=== PATIENT | female | born 1940 | race Caucasian/White ===

== ENCOUNTER 2024-11-20 01:27 | Observation (INO) | payer MEDICARE, SELFPAY ==
[2024-11-19 21:14] VITALS: BP 108/75
[2024-11-19 21:39] LABS: Urine Albumin 3+ (Neg - Trace); Urine Bilirubin Negative (Negative); Urine Character Clear (Clear); Urine Color Yellow; Urine Glucose Negative (Negative); Urine Ketone Negative (Negative); Urine Leukocyte 3+ (Negative); Urine Nitrite Positive (Negative); Urine Occult Blood 4+ (Negative); Urine Urobilinogen Negative (Neg - 1+)
[2024-11-19 21:48] LABS: Urine Squamous Cell 0-2 /LPF (Few)
[2024-11-19 21:50] LABS: Urine Bacteria Many (Negative); Urine White Cell >100 /HPF (0-5)
[2024-11-19 23:05] LABS: % Basophils 0.3 % (0-2); % Eosinophils 0.1 % (0-6); % Immature Granulocytes 0.3 % (0-0.5); % Lymphocytes 6.4 % (20.5-51.1); % Monocytes 6.4 % (1.7-9.3); % Neutrophils 86.5 % (42.2-75.2); Absolute Lymphocytes 0.7 10^3/uL (1.2-3.4); Absolute Monocytes 0.7 10^3/uL (0.1-0.6); Absolute Neutrophils 9.5 10^3/uL (1.4-6.5); Hemoglobin 12.7 g/dL (12.0-16.0); Mean Corp Hgb Conc. 33.4 g/dL (33.0-37.0); Mean Corpuscular Hgb 30.6 pg (27.0-31.0); Mean Corpuscular Volume 91.6 fL (81.0-99.0); Mean Platelet Volume 9.3 fL (7.4-10.4); Nucleated Red Blood Cells % 0 %; Platelet Count 326 10^3/uL (130-400); Red Blood Cell Count 4.15 10^6/uL (4.20-5.40); Red Cell Dist. Width 13.1 % (11.5-14.5)
--- NOTE | 2024-11-19 23:18 | ED.GENMED ---
History of Present Illness
General
Chief Complaint: Urinary Symptoms
Time Seen by Provider: 11/19/24 22:39
History of Present Illness
History of Present Illness:
Patient is a 84-year-old woman presenting to the emergency department with urinary symptoms and weakness. Patient states that today she slid off the toilet secondary to weakness. She did not fall or hit her head or lose consciousness. She notes
that she is been having urinary frequency and episodes of incontinence. She has had a UTI before. No fevers or chills. Family at bedside notes that she did have a change in her mentation 2 weeks ago but attributed that to using oxycodone as well
as Tylenol PM. She stopped using that and since then has not had any change in her mental status. Currently she is at her baseline.
Past History
Past History
ED Past Medical History: Other (chronic back pain with stimulator, LE neuropathy)
Social History
Personal:
Living: alone (children near by)
Phy Exam
Physical Exam
Physical Exam:
GENERAL: in no acute distress
HEENT: normocephalic, extraocular movements intact, moist oral mucosa
NECK: normal inspection
RESPIRATORY: no respiratory distress, clear to auscultation bilaterally
CARDIOVASCULAR: regular rate and rhythm
ABDOMEN/: soft, non-distended, non-tender to palpation, no rebound or guarding
EXTREMITIES: non-tender, no edema/swelling
NEUROLOGIC: awake and alert oriented x 3, moves all extremities
SKIN: warm
Sepsis
Sepsis Screening
Sepsis Assessment: Sepsis Ruled Out
Sepsis Screen
Sepsis Screen: Sepsis Ruled Out
Date: 11/19/24
Time: 23:59
Course
Orders/Labs/Results
Orders:
Orders
11/19/24 21:30
Urinalysis Reflex To Culture Urgent
Date Specimen was Collected: 11/19/24
Time Specimen was Collected: 21:18
Urine Microscopic Reflex Cult Urgent
Urine Culture Urgent
NEHA Source: U
Specimen Description:
Date Specimen was Collected: 11/19/24
Time Specimen was Collected: 21:18
11/19/24 22:53
Complete Blood Count/With Diff Urgent
Comprehensive Metabolic Panel Urgent
11/19/24 23:56
Ciprofloxacin 400 mg/[id number] [Cipro 400 mg] 200 ml IV NOW
11/19/24 23:58
Acetaminophen [Tylenol] 1,000 mg PO NOW STA
Abnormal Lab Results
11/19/24 11/19/24
21:30 22:53
WBC 11.0 H 10^3/uL
(4.8-10.8)
RBC 4.15 L 10^6/uL
(4.20-5.40)
Absolute Neuts (auto) 9.5 H 10^3/uL
(1.4-6.5)
Absolute Lymphs (auto) 0.7 L 10^3/uL
(1.2-3.4)
Absolute Monos (auto) 0.7 H 10^3/uL
(0.1-0.6)
Neutrophils % 86.5 H %
(42.2-75.2)
Lymphocytes % 6.4 L %
(20.5-51.1)
Glucose 112 H mg/dl
(70-99)
Ur Occult Blood Reflex 4+ A
(Negative)
Urine Nitrite (Reflex) Positive A
(Negative)
Leukocyte Esterase Rfl 3+ A
(Negative)
Urine WBC (Reflex) >100 A /HPF
(0-5)
Urine Bacteria (Reflex) Many A
(Negative)
Urine Albumin (Reflex) 3+ A
(Neg - Trace)
11/19/24 22:53
11/19/24 22:53
Vital Signs
Initial and Last Documented VS:
Initial Vital Signs
Temp Pulse Resp BP Pulse Ox
98.3 F 88 16 108/75 99
11/19/24 21:14 11/19/24 21:14 11/19/24 21:14 11/19/24 21:14 11/19/24 21:14
Last Documented Vital Signs
Temp Pulse Resp BP Pulse Ox
98.3 F 88 16 108/75 99
11/19/24 21:14 11/19/24 21:14 11/19/24 21:14 11/19/24 21:14 11/19/24 21:14
MDM/Problems Addressed
Differential Diagnosis Includes:
Patient is a 83-year-old woman presenting to the emergency department with generalized weakness that resulted her and sliding off the toilet with the urinary symptoms. Vitals are notable for being afebrile. Exam is otherwise reassuring. She does
not have any obvious traumatic injuries. Concern for UTI versus metabolic derangement. Urine does show an obvious infection. Will check blood work. Given the degree of weakness that resulted in a fall and the fact the patient lives at home by
herself patient will need admission for antibiotics/PT eval prior to discharge.
*Critical Care Note
Total Time (30-74mins, 75-104mins- exclusive of procedures): Not Applicable
Update Note
Update Note:
Blood work does show white count of 11. Patient remained afebrile. Will give antibiotics and admit. Discussed with hospitalist who excepted patient to their service
ED Attending Note
-
Portions of this chart may have been created with voice recognition software.� Occasional wrong word or��sound alike� substitutions may have occurred due to the inherent limitations of voice recognition software.
Discharge Plan
Departure
Patient Disposition: Admit
Date of Disposition: 11/19/24
Time of Disposition: 23:58
Presentation/result/management discussed w/ accepting MD/DO: Hospitalist
Discharge Problem:
Acute UTI
Prescriptions:
No Action
bupropion HCl 150 mg Tablet Sustained-Release 12 Hr
150 mg PO BID
ibuprofen [Advil] 200 mg Tablet
600 mg PO Q6H PRN (Reason: pain)
magnesium 250 mg Tablet
250 mg PO DAILY
alpha lipoic acid [Lipoic Acid] 100 mg Capsule
100 mg PO DAILY
Referrals:
UNKNOWN - PT DOES,NOT KNOW [Family Provider]
Interventions
Interventions:
*Risk Screen - Suicide Last Done: 11/19/24 21:14
*General Assessment Last Done: 11/19/24 22:38
*Neglect/Abuse Screening Last Done: 11/19/24 21:14
*ED- Fall Risk Assessment Last Done: 11/19/24 21:14
*ED COVID-19 Vaccine History Last Done: 11/19/24 22:38
ED-Female Genitourinary Assessment Last Done: 11/19/24 22:38
Discharge Date and Time
Print Language: NORWEGIAN
[2024-11-19 23:23] LABS: ALT (SGPT) 11 U/L (0-35); AST (SGOT) 17 U/L (14-36); Albumin 4.1 g/dl (3.5-5.0); Alkaline Phosphatase 74 U/L (38-126); Blood Urea Nitrogen 14 mg/dl (7-17); Calcium 9.9 mg/dl (8.4-10.2); Carbon Dioxide 27 mmol/L (22-30); Chloride 103 mmol/L (98-107); Glucose 112 mg/dl (70-99); Potassium 4.4 mmol/L (3.5-5.1); Sodium 137 mmol/L (135-145); Total Bilirubin 0.7 mg/dl (0.2-1.3); eGFR > 60.00
[2024-11-20] MEDS: TYLENOL 1000 MG PO (00:05)
[2024-11-20 00:07] VITALS: BMI 24.2
[2024-11-20] MEDS: CIPRO 400 MG 200 IV ×3 (00:24→23:00)
[2024-11-20 00:29] VITALS: BP 132/70
--- NOTE | 2024-11-20 01:04 | HPS.HSE ---
Family Physician
-
Family Physician: NOT KNOW UNKNOWN - PT DOES
Chief Complaint
-
Weakness, Incontinence
History of Present Illness
Patient is an 84y F with PMH significant for osteoarthritis and chronic back pain who presents to ED complaining of generalized weakness. History obtained from patient and her family at the bedside. Patient has noted increased weakness and
urinary incontinence for the past two weeks or so. She reports urgency and has had difficulty due to chronic back pain / ambulatory dysfunction in making it to the bathroom. Today she reported sharp pain in the lower back which was not consistent
with her usual pain. She was unable to get out of bed at all today. This evening, she 'slid' to the floor. Family found her on the floor, incontinent of urine and unable to get up unassisted.
Patient denies any injury related to sliding from bed. No fevers or chills. No N/V/D.
Patient lives alone.
Medical History
Past Medical History
Past Medical History: Reports Other
Additional Past Medical History:
Osteoporosis
Osteoarthritis
Lumbar DDD
Chronic Back Pain
Anxiety / Depression
Past Surgical History: Reports Other
Additional Past Surgical History:
L5 Laminectomy
Cataracts
Social History
Tobacco: Former Smoker
Alcohol: None
Drug: None
Family History
Family History: Not pertinent
Allergies / Home Medications
Allergies reflects when Allergies were last updated in [facility].
Home Medications with original date entered in [facility]
Allergy/Medication List:
Allergies
Allergy/AdvReac Type Severity Reaction Status Date / Time
Penicillins Allergy Anaphylaxis Verified 11/19/24 21:18
Home Medications
alpha lipoic acid 100 mg capsule 100 mg PO DAILY 09/22/22
bupropion HCl 150 mg tablet,12 hr sustained-release 150 mg PO BID 09/22/22
ibuprofen 200 mg tablet (Advil) 600 mg PO Q6H PRN pain 09/22/22
magnesium 250 mg tablet 250 mg PO DAILY 09/22/22
Review of Systems
-
History Source: Patient
A 12 point ROS was completed and negative except as noted: Yes
Constitutional: Reports Fatigue; Denies Fever or Chills
Respiratory: Denies Cough or Trouble Breathing
Cardiac: Denies Chest Pain or Palpitations
Abdomen/GI: Denies Abdominal Pain, Nausea, Vomiting or Diarrhea
: Reports Frequency, Incontinence and Urgency; Denies Dysuria or Bleeding
Musculoskeletal: Reports Other (Back Pain); Denies Joint Pain or Edema
Neurological: Reports Weakness; Denies Dizzy or Headache
Psych: Denies Depression or Anxiety
Physical Exam
Vital Signs
Vital Signs
Temp Pulse Resp BP Pulse Ox
98.3 F 91 16 132/70 95
11/19/24 21:14 11/20/24 00:29 11/20/24 00:29 11/20/24 00:29 11/20/24 00:29
Physical Exam
General: Other (84y F in no acute distress.)
HEENT: Moist mucous membranes and PERRLA
Respiratory: Clear; No Wheezes, Rales or Rhonchi
Cardiac: S1/S2 and Regular Rhythm; No Murmur
GI: Soft, Non Tender, Non Distended and Normal Bowel Sounds
Musculoskeletal: No Clubbing, No Cyanosis and No Edema
Neuro: AO x 3
Laboratory Results
-
11/19/24 22:53
11/19/24 22:53
Laboratory Results
Total Bilirubin 0.7 mg/dl (0.2-1.3) 11/19/24 22:53
AST 17 U/L (14-36) 11/19/24 22:53
ALT 11 U/L (0-35) 11/19/24 22:53
Alkaline Phosphatase 74 U/L (38-126) 11/19/24 22:53
Impression/Plan
-
A/P: Patient is an 84y F with PMH significant for chronic back pain and gait dysfunction who presents to ED c/o weakness and urinary incontinence.
UTI
- Observe overnight for further evaluation and treatment.
- Continue abx pending culture data and adjust as appropriate.
- Follow for clinical improvement.
Acute on Chronic Ambulatory Dysfunction
Chronic Back Pain / DDD
- PT / OT eval.
- Continue efforts at pain control / increased mobility.
- Monitor for improvement in weakness / mobility with treatment of underlying infection.
Anxiety / Depression
- Patient states that she was previously on sertraline (along with her bupropion) which she found very helpful.
- Will restart this at 100mg HS for now and recommend that she follow up with her PCP.
DVT Prophylaxis: SCDs
Code Status: DNR
[2024-11-20 02:46] VITALS: BP 120/57; BMI 23.5
[2024-11-20] MEDS: NSS 1000 IV ×2 (02:52→14:22)
[2024-11-20 06:36] LABS: Hemoglobin 11.8 g/dL (12.0-16.0); Mean Corp Hgb Conc. 32.8 g/dL (33.0-37.0); Mean Corpuscular Hgb 30.5 pg (27.0-31.0); Mean Platelet Volume 9.5 fL (7.4-10.4); Platelet Count 327 10^3/uL (130-400); Red Blood Cell Count 3.87 10^6/uL (4.20-5.40); Red Cell Dist. Width 13.2 % (11.5-14.5); White Blood Cell Count 10.5 10^3/uL (4.8-10.8)
[2024-11-20 07:30] LABS: Blood Urea Nitrogen 14 mg/dl (7-17); Calcium 9.7 mg/dl (8.4-10.2); Carbon Dioxide 24 mmol/L (22-30); Chloride 105 mmol/L (98-107); Estimated Creatinine Clearance 46 ml/min; Glucose 105 mg/dl (70-99); Potassium 4.5 mmol/L (3.5-5.1); Sodium 139 mmol/L (135-145); eGFR > 60.00
[2024-11-20] MEDS: TYLENOL 650 MG PO ×2 (07:33→17:17)
--- NOTE | 2024-11-20 08:13 | W.PN.HOSP.TC ---
Today's Communication/Plan
-
Continue antibiotics
Follow urine cultures
Assessment / Plan
Assessment / Plan
Physical Exam
General: Not in acute distress
HEENT: Moist mucous membranes
Respiratory: Clear to Auscultation Bilaterally
Cardiac: S1/S2 and Regular Rhythm
GI: Soft, Non Tender, Non Distended and Normal Bowel Sounds
Musculoskeletal: No Cyanosis and No Edema
Neuro: AAO x 3
Assessment/Plan
84 y/o female with past medical history significant for osteoarthritis and chronic back pain with spinal stenosis and spinal stimulator who presented to ED complaining of generalized weakness. History obtained from patient and her family at the
bedside. Patient noted increased weakness and urinary incontinence for the two weeks or so prior to presentation. She reported urinary urgency and has had difficulty due to chronic back pain / ambulatory dysfunction in making it to the bathroom. On
11/19/24, she reported sharp pain in the lower back which was not consistent with her usual pain. She was unable to get out of bed at all, on the day of presentation. On the evening, she 'slid' to the floor. Family found her on the floor,
incontinent of urine and unable to get up unassisted. Patient denied any injury related to sliding from bed. No fevers or chills. No N/V/D.
Patient lives alone.
Generalized Weakness - Improved
UTI
- Observe overnight for further evaluation and treatment.
- Continue abx pending culture data and adjust as appropriate.
- Checked QTc given Cipro -- QTc is normal
- Monitor QTc
- Follow for clinical improvement.
Acute on Chronic Ambulatory Dysfunction
Chronic Back Pain / DDD
- PT / OT evaluation
- Continue efforts at pain control / increased mobility.
- IMPROVING -- continue to monitor for improvement in weakness / mobility with treatment of underlying infection.
Anxiety / Depression
- Patient stated that she was previously on sertraline (along with her bupropion) which she found very helpful.
- Hold off on sertraline for now given patient is on Cipro
DVT Prophylaxis: SCDs. Lovenox.
Code Status: DNR
Contact information for patient's family:
Theresa -- [phone]
Estella -- [phone]
Terri -- [phone]
This is a non-billable note.
Anticipated Discharge: 24 - 48 hours
Subjective/Interval History
-
Date of Service: November 20, 2024
Patient was seen and examined. She reported she felt significantly better, weakness and symptoms overall much improved.
Objective Data
-
Labs:
Laboratory Results
11/19/24 11/20/24
22:53 06:03
WBC 11.0 H 10.5
Hgb 12.7 11.8 L
Hct 38.0 36.0 L
Plt Count 326 327
Sodium 137 139
Potassium 4.4 4.5
Chloride 103 105
Carbon Dioxide 27 24
BUN 14 14
Creatinine 0.7 0.7
Glucose 112 H 105 H
Calcium 9.9 9.7
Total Bilirubin 0.7
AST 17
ALT 11
Alkaline Phosphatase 74
Vital Signs:
Vital Signs
Temp Pulse Resp BP Pulse Ox
99.3 F 89 18 120/57 95
11/20/24 02:46 11/20/24 02:46 11/20/24 02:46 11/20/24 02:46 11/20/24 02:46
I&O
11/19/24 11/20/24 11/21/24
06:59 06:59 06:59
Intake Total 120 / 120
Balance 120 / 120
[2024-11-20] MEDS: WELLBUTRIN SR (12 hour sustained release) 150 MG PO ×2 (09:27→19:34)
[2024-11-20 12:00] VITALS: BP 123/71; PULSE 79; O2SAT 96
[2024-11-20 15:04] VITALS: BP 121/63
--- NOTE | 2024-11-20 16:53 | CM ---
Alert awake oriented patient who lives alone in a 1 story home with 4 steps to enter. She is independent in activates of daily living.She does drive .She used a walker here in hospital.Her support person in [place] letter explained signed on
chart.Offered Vn she requested [facility] .
No VN in past . No SNF hx
Pharmacy [facility]
PCP [facility]
PLAN Home with [facility]
[2024-11-20] MEDS: LOVENOX 40 MG SC (17:16)
[2024-11-20 23:09] VITALS: BP 125/65
[2024-11-21 03:23] VITALS: BP 120/66
[2024-11-21] MEDS: NSS 1000 IV (03:42)
[2024-11-21 05:52] VITALS: BMI 24.0
[2024-11-21 07:45] LABS: Blood Urea Nitrogen 11 mg/dl (7-17); Calcium 8.8 mg/dl (8.4-10.2); Carbon Dioxide 25 mmol/L (22-30); Chloride 109 mmol/L (98-107); Estimated Creatinine Clearance 54 ml/min; Glucose 105 mg/dl (70-99); Magnesium 2.1 mg/dl (1.6-2.3); Potassium 3.8 mmol/L (3.5-5.1); Sodium 139 mmol/L (135-145); eGFR > 60.00
[2024-11-21 07:55] VITALS: BP 127/74
[2024-11-21] MEDS: TYLENOL 650 MG PO (08:18)
[2024-11-21] MEDS: WELLBUTRIN SR (12 hour sustained release) 150 MG PO (08:18)
[2024-11-21 08:43] LABS: Hematocrit 32.2 % (37.0-47.0); Hemoglobin 10.7 g/dL (12.0-16.0); Mean Corp Hgb Conc. 33.2 g/dL (33.0-37.0); Mean Corpuscular Hgb 30.9 pg (27.0-31.0); Mean Corpuscular Volume 93.1 fL (81.0-99.0); Mean Platelet Volume 9.9 fL (7.4-10.4); Platelet Count 258 10^3/uL (130-400); Red Blood Cell Count 3.46 10^6/uL (4.20-5.40); Red Cell Dist. Width 13.3 % (11.5-14.5); White Blood Cell Count 7.8 10^3/uL (4.8-10.8)
[2024-11-21] MEDS: CIPRO 400 MG 200 IV (11:15)
--- NOTE | 2024-11-21 11:47 | W.PN.HOSP.TC ---
Today's Communication/Plan
-
Discharge today
Assessment / Plan
Assessment / Plan
Physical Exam
General: Not in acute distress
HEENT: Moist mucous membranes
Respiratory: Clear to Auscultation Bilaterally
Cardiac: S1/S2 and Regular Rhythm
GI: Soft, Non Tender, Non Distended and Normal Bowel Sounds
Musculoskeletal: No Cyanosis and No Edema
Neuro: AAO x 3
Assessment/Plan
84 y/o female with past medical history significant for osteoarthritis and chronic back pain with spinal stenosis and spinal stimulator who presented to ED complaining of generalized weakness. History obtained from patient and her family at the
bedside. Patient noted increased weakness and urinary incontinence for the two weeks or so prior to presentation. She reported urinary urgency and has had difficulty due to chronic back pain / ambulatory dysfunction in making it to the bathroom. On
11/19/24, she reported sharp pain in the lower back which was not consistent with her usual pain. She was unable to get out of bed at all, on the day of presentation. On the evening, she 'slid' to the floor. Family found her on the floor,
incontinent of urine and unable to get up unassisted. Patient denied any injury related to sliding from bed. No fevers or chills. No N/V/D.
Patient lives alone.
Generalized Weakness - Improved
E. coli UTI
- On discharge: Cipro 500 mg PO Q12H (I confirmed via [place] Text with clinical pharmacist that this is the correct dosing for the patient)
- Checked QTc given Cipro -- QTc is normal x2
- Follow for clinical improvement.
Acute on Chronic Ambulatory Dysfunction
Chronic Back Pain / DDD
- PT / OT evaluation
- Continue efforts at pain control / increased mobility.
- IMPROVING -- continue to monitor for improvement in weakness / mobility with treatment of underlying infection.
Anxiety / Depression
- Patient stated that she was previously on sertraline (along with her bupropion) which she found very helpful.
- Hold off on sertraline for now given patient is on Cipro
DVT Prophylaxis: SCDs. Lovenox.
Code Status: DNR
Contact information for patient's family:
Theresa -- [phone]
Estella -- [phone]
Terri -- [phone]
More than 30 minutes spent in discharge including
Final examination of the patient
Summarizing hospital stay
Instructions for continuing care to all relevant caregivers
Preparation of discharge records, prescriptions, and referral forms
Total time spent (in minutes): 37
Anticipated Discharge: Today
Subjective/Interval History
-
Date of Service: November 21, 2024
Patient was seen and examined. She reported doing well, denied any complaints, reported that overall she has improved. She would like to go home today.
Objective Data
-
Labs:
Laboratory Results
11/21/24
06:25
WBC 7.8
Hgb 10.7 L
Hct 32.2 L
Plt Count 258 D
Sodium 139
Potassium 3.8
Chloride 109 H
Carbon Dioxide 25
BUN 11
Creatinine 0.6
Glucose 105 H
Calcium 8.8
Vital Signs:
Vital Signs
Temp Pulse Resp BP Pulse Ox
99.1 F 77 18 127/74 96
11/21/24 07:55 11/21/24 07:55 11/21/24 07:55 11/21/24 07:55 11/21/24 07:55
I&O
11/20/24 11/21/24 11/22/24
06:59 06:59 06:59
Intake Total 120 / 120 1080 / 1080
Balance 120 / 120 1080 / 1080
[2024-11-21 11:55] VITALS: BP 119/64
--- NOTE | 2024-11-21 11:55 | VNURNOTE ---
Home Health Liaison met with patient at bedside to discuss [facility] nurse/therapy, visits, schedule and homebound status. Patient is agreeable and understands that visits at home will be 2-3 x per week to assess and teach medical management.
Patient is aware that [facility] will contact them for start of care in 1-2 days after discharge from .
[facility] referral accepted in [facility].
--- NOTE | 2024-11-21 13:47 | CM ---
Patient has been medically cleared for discharge to home with CHRIS PATTEN RN, PT/OT. Daughter will assist patent after discharge. Daughter will transport home. Patient remains on OBS status. .
--- NOTE | 2024-11-21 14:02 | W.DCSUMMARY ---
Discharge Summary
Discharge Data
Date of Admission: 11/20/24
Date of Discharge: 11/21/24
Total time spent discharging patient (in min): 37
-
Pending Results: No
Hospital Course
84 y/o female with past medical history significant for anaphylaxis allergy to penicillins, osteoarthritis and chronic back pain (seeing neurology outpatient), who presented to the emergency room complaining of generalized weakness. Patient noted
increased generalized weakness and urinary incontinence for the previous ~2 weeks. She reported urinary urgency and had difficulty due to chronic back pain/ambulatory dysfunction in making it to the bathroom. On the day of presentation, she was
unable to get up out of bed and slid to the floor, without any injuries. Patient was started on antibiotics for urinary tract infection. Patient's electrocardiogram QTc was checked given that she was on a fluoroquinolone antibiotic (Ciprofloxacin),
and QTc was normal. Patient denied any chest pain, shortness of breath or abdominal pain. Patient's clinical condition and weakness improved, she was doing relatively well, and she wanted to go home. Patient's urine culture grew pansensitive E.
coli, and she was discharged with oral Ciprofloxacin to complete a 5-day course.
Discharge Plan
-
Patient Disposition: Home with Home Care
Discharge Diagnosis/Procedures: E. Coli Urinary Tract Infection
Anaphylaxis/Allergy to Penicillins
Generalized Weakness (Improved) -- suspected secondary to urinary tract infection
Acute on Chronic Ambulatory Dysfunction
Chronic Back Pain/DDD
Anxiety/Depression
Condition: Good
Diet: As tolerated
Activity: As tolerated
Blood Work: CBC, BMP and Magnesium with your primary care provider in 3 to 4 days
Other Services: VN
Activity Restrictions/Additional Instructions:
Follow-up with your primary care provider in 2 to 3 days and provide your hospital discharge papers to them.
Instructions: Ciprofloxacin (Systemic)
Referrals:
UNKNOWN - PT DOES,NOT KNOW [Family Provider]
Additional Discharge Medication Instructions: Ciprofloxacin is a new medication.
Prescriptions:
New
ciprofloxacin HCl 250 mg tablet
250 mg PO Q12H Qty: 7 0RF
Continued
bupropion HCl 150 mg Tablet Sustained-Release 12 Hr
150 mg PO BID
magnesium 250 mg Tablet
250 mg PO DAILY
alpha lipoic acid 100 mg Capsule
100 mg PO DAILY
Held
ibuprofen [Advil] 200 mg Tablet
600 mg PO Q6H PRN (Reason: pain)
Hold Instructions: Resume on 12/05/24. Check with your primary care physician regarding if and if so, when, to resume this medication.
Discharge Orders:
Discharge Patient (As Directed); Ordered 11/21/24
Ordered By: Owen Galindo
Discharge Date and Time
Discharge Date/Time: 11/21/24 14:29
Print Language: CITIZEN OF [place]
== END 2024-11-21 14:29 | disposition home health service (06) ==
LOC: 4 EAST ACU 01:27
PROVIDERS: Emergency Medicine; ADMITTING PHYSICIAN Hospitalist; ATTENDING PHYSICIAN Hospitalist; EMERGENCY PHYSICIAN Student in an Organized Health Care Education/Training Program
DX: N39.0 Urinary tract infection, site not specified (principal); R53.1 Weakness; Z60.2 Problems related to living alone; Z87.891 Personal history of nicotine dependence; G89.29 Other chronic pain; R26.2 Difficulty in walking, not elsewhere classified; F32.A Depression, unspecified; F41.9 Anxiety disorder, unspecified; Z66 Do not resuscitate
CPT/HCPCS: 80048; 80053; 81003; 81015; 83735; 85025; 85027; 87077; 87086; 87186; 93005; 97163; 97166; 99285; G0378